=== PATIENT | female | born 1935 | race Caucasian/White ===

== ENCOUNTER 2018-05-06 04:56 | Inpatient (IN) | payer OTHER, MEDICAID ==
[2018-05-01 08:13] LABS: BASOPHILS # (AUTO) 0.1 K/uL (0.0-0.2); BASOPHILS % (AUTO) 0.7 % (0.0-2.0); EOSINOPHILS # (AUTO) 0.3 K/uL (0.0-0.4); EOSINOPHILS % (AUTO) 3.7 % (0.0-4.0); HEMATOCRIT 40.1 % (36-48); HEMOGLOBIN 13.2 g/dL (12.0-16.0); LYMPHOCYTES # (AUTO) 2.6 K/uL (1.0-5.5); LYMPHOCYTES % (AUTO) 33.1 % (20.5-51.5); MEAN CORPUSCULAR HEMOGLOBIN 31 pg (27-31); MEAN CORPUSCULAR HGB CONC 33 % (32-36); MEAN CORPUSCULAR VOLUME 95 fL (79.0-98.0); MONOCYTES # (AUTO) 0.8 K/uL (0.0-1.0); MONOCYTES % (AUTO) 9.5 % (1.7-9.3); NEUTROPHILS # (AUTO) 4.2 K/uL (1.8-7.7); PLATELET COUNT (AUTO) 280 K/uL (130-430); RED BLOOD CELL COUNT(AUTO) 4.22 MIL/uL (4.2-6.2); RED CELL DISTRIBUTION WIDTH 12.8 % (9.0-15.0); WHITE BLOOD COUNT (AUTO) 7.9 K/uL (4.8-10.8)
[2018-05-01 08:19] LABS: ANION GAP 8 (5-15); CALCIUM 8.9 mg/dL (8.4-11.0); CHLORIDE 105 mmol/L (98-107); GLUCOSE 97 mg/dL (70-99); POTASSIUM 4.1 mmol/L (3.5-5.1); SODIUM SERUM 139 mmol/L (136-145); UREA NITROGEN, BLOOD 22 mg/dL (8-21)
[2018-05-01 08:29] LABS: BILIRUBIN,URINE NEGATIVE (NEGATIVE); BLOOD, URINE 1+ (NEGATIVE); CLARITY/URINE SL HAZY (CLEAR); COLOR,URINE YELLOW (YELLOW); GLUCOSE,URINE NEGATIVE (NEGATIVE); KETONES,URINE NEGATIVE (NEGATIVE); LEUKOCYTE ESTERASE ,URINE 2+ (NEGATIVE); NITRITE, URINE POSITIVE (NEGATIVE); PH,URINE 5.5 (5.0-8.0); PROTEIN URINE NEGATIVE (NEGATIVE); UROBILINOGEN,URINE 0.2 (0.2-1.0)
[2018-05-01 08:31] LABS: PROTHROMBIN TIME 10.1 SECS (9.5-12.5)
[2018-05-01 09:34] LABS: BACTERIA,URINE MODERATE /HPF (None Seen); MUCUS,URINE None Seen /LPF (None Seen); WBC,URINE 20-50 /HPF (0-3); YEAST,URINE None Seen /HPF (None Seen)
[~2018-05-06] VITALS: Ht 152.4 cm; Wt 83.0 kg
[~2018-05-06 04:56] MED LIST: BENA20TA2 PO; CLOP300T2 PO; NEU300 PO; ROPI2TAB4 PO; SIMV40TA2 PO; SYN50 PO
[2018-05-06] MEDS ORDERED: CELECOXIB 200 MG CAPSULE ONE (05:40)
[2018-05-06] MEDS ORDERED: ACETAMINOPHEN 500 MG TABLET ONE (05:40)
[2018-05-06] MEDS ORDERED: GABAPENTIN 300 MG CAPSULE ONE (05:41)
[2018-05-06] MEDS ORDERED: TRANEXAMIC ACID 650 MG TABLET ONE (05:41)
[2018-05-06] MEDS ORDERED: oxyCODONE HCL 10 MG TAB.ER.12H PO ONE ×2 (05:41→06:30)
[2018-05-06] MEDS ORDERED: CLINDAMYCIN 600 mg/50mL D5W 50 ML IV ONE (05:42)
[2018-05-06] MEDS ORDERED: ACETAMINOPHEN 500 MG TABLET PO ONE (06:30)
[2018-05-06] MEDS ORDERED: NACL 0.9% 1,000 ML IV ONE (06:30)
[2018-05-06] MEDS ORDERED: GABAPENTIN 300 MG CAPSULE PO ONE (06:30)
[2018-05-06] MEDS ORDERED: CLINDAMYCIN PHOS 600 MG/ D5W 50 ML PREMIX IV ONE (06:30)
[2018-05-06] MEDS ORDERED: CELECOXIB 200 MG CAPSULE PO ONE (06:30)
[2018-05-06] MEDS ORDERED: TRANEXAMIC ACID 650 MG TABLET PO ONE (06:30)
[2018-05-06] MEDS ORDERED: TRAZ-126 PO (06:36)
[2018-05-06] MEDS ORDERED: TOLT4CAP PO (06:36)
[2018-05-06] MEDS ORDERED: CETI1TAB2 PO (06:36)
[2018-05-06] MEDS ORDERED: POLYMYXIN 500,000/BACIT.10,000 UNITS in NS IRR 1 L IR ONE (06:58)
[2018-05-06] MEDS ORDERED: PROPOFOL 200MG/ 20ML VIAL (DIPRIVAN) IV ONE (07:00)
[2018-05-06] MEDS ORDERED: ROCURONIUM BROMIDE 10 MG/ML (ZEMURON) IV ONE (07:00)
[2018-05-06] MEDS ORDERED: ONDANSETRON HCL 4 MG/2 ML VIAL IVP ONE (07:00)
[2018-05-06] MEDS ORDERED: TRANEXAMIC ACID 1,000 MG/10 ML VIAL IV ONE (07:00)
[2018-05-06] MEDS ORDERED: NS 50 ML BAG IV ONE (07:00)
[2018-05-06] MEDS ORDERED: ePHEDrine sulfate 50 MG/ML VIAL IVP ONE (07:00)
[2018-05-06] MEDS ORDERED: NORMAL SALINE 10 ML VIAL IVP ONE (07:00)
[2018-05-06] MEDS ORDERED: MORPHINE SULFATE 10MG/10ML PF AMP EP ONE (07:00)
[2018-05-06] MEDS ORDERED: MIDAZOLAM HCL 5 MG/5 ML VIAL IVP ONE (07:00)
[2018-05-06] MEDS ORDERED: ROPIVACAINE HCL/PF 0.2% (NAROPIN) 200 ML PLAST..BAG EP ONE (07:00)
[2018-05-06] MEDS ORDERED: fentaNYL CITRATE 250 MCG/5 ML AMP IV ONE (07:00)
[2018-05-06] MEDS ORDERED: KETOROLAC TROMETHAMINE 30 MG VIAL IVP ONE (07:00)
[2018-05-06] MEDS ORDERED: ROPIVACAINE HCL/PF 5 MG/ML 0.5% 30 ML VIAL INJ ONE (07:00)
[2018-05-06] MEDS ORDERED: EPINEPHrine 1 MG/ML AMP IV ONE (07:00)
[2018-05-06] MEDS ORDERED: SEVOFLURANE 15 MIN GAS INH ONE (07:00)
[2018-05-06] MEDS ORDERED: LR 1,000 ML IV.SOLN IV ONE (07:00)
[2018-05-06] MEDS ORDERED: VANCOMYCIN HCL 1000 MG/VIAL IV ONE (07:00)
[2018-05-06] MEDS ORDERED: DEXAMETHASONE SOD PHOSPHATE 4 MG/ML VIAL IVP ONE (07:00)
[2018-05-06] MEDS ORDERED: ATROPINE SULFATE 0.4 MG/ML VIAL IVP ONE (07:00)
[2018-05-06] MEDS ORDERED: fentaNYL CITRATE/PF 100 MCG/2 ML AMP IVP ONE (07:00)
[2018-05-06] MEDS ORDERED: LR 1,000 ML IV SCH (08:09)
[2018-05-06] MEDS ORDERED: ROPIVACAINE 0.2% 100 ML INJ SCH (08:09)
[2018-05-06] MEDS ORDERED: HYDROmorphone 2 MG/ML VIAL IVP PRN ×3 (08:15)
[2018-05-06] MEDS ORDERED: MEPERIDINE HCL/PF 25 MG/ML DISP.SYRIN IVP PRN (08:15)
[2018-05-06] MEDS ORDERED: HYDROcodone/ACETAMIN 10-325 MG TAB PO PRN (08:15)
[2018-05-06] MEDS ORDERED: oxyCODONE HCL 5 MG TABLET PO PRN (09:30)
[2018-05-06] MEDS: D5LR 1,000 ML IV SCH ×2 (09:30→17:55)
[2018-05-06] MEDS ORDERED: ONDANSETRON HCL 4 MG/2 ML VIAL IVP PRN (09:30)
[2018-05-06] MEDS ORDERED: SENNOSIDES 8.6 MG TABLET PO PRN (09:30)
[2018-05-06] MEDS ORDERED: DIPHENHYDRAMINE HCL 25 MG CAPSULE PO PRN (09:30)
[2018-05-06] MEDS ORDERED: KETOROLAC TROMETHAMINE 15 MG VIAL IVP PRN ×2 (09:30)
[2018-05-06] MEDS: ROPIVACAINE 0.2% 550 ML INJ SCH (09:30)
[2018-05-06] MEDS ORDERED: PROMETHAZINE HCL 25 MG/ML AMP IVP PRN (09:30)
[2018-05-06] MEDS: HYDROmorphone 1 MG INJ. 1 MG/ML AMPUL ONE ×2 (10:30→11:43)
[2018-05-06] MEDS: ePHEDrine sulfate 50 MG/ML VIAL IVP ONE ×4 (10:40→11:44)
[2018-05-06] MEDS ORDERED: ePHEDrine sulfate 50 MG/ML VIAL ONE (10:45)
[2018-05-06 11:23] LABS: BASOPHILS % (AUTO) 0.3 % (0.0-2.0); EOSINOPHILS % (AUTO) 0.3 % (0.0-4.0); HEMATOCRIT 36.6 % (36-48); HEMOGLOBIN 12.1 g/dL (12.0-16.0); MEAN CORPUSCULAR HEMOGLOBIN 32 pg (27-31); MEAN CORPUSCULAR HGB CONC 33 % (32-36); MEAN CORPUSCULAR VOLUME 96 fL (79.0-98.0); MONOCYTES # (AUTO) 0.1 K/uL (0.0-1.0); MONOCYTES % (AUTO) 1.3 % (1.7-9.3); NEUTROPHILS # (AUTO) 9.3 K/uL (1.8-7.7); NEUTROPHILS % (AUTO) 88.1 % (40.0-70.0); PLATELET COUNT (AUTO) 269 K/uL (130-430); RED BLOOD CELL COUNT(AUTO) 3.82 MIL/uL (4.2-6.2); WHITE BLOOD COUNT (AUTO) 10.4 K/uL (4.8-10.8)
[2018-05-06 11:30] VITALS: BP_SYST 118
[2018-05-06] MEDS: CLINDAMYCIN 600 mg/50mL D5W 50 ML IV SCH ×3 (14:13→23:36)
[2018-05-06 14:42] VITALS: BP_SYST 118
[2018-05-06 15:45] VITALS: BP_SYST 94
[2018-05-06] MEDS: ACETAMINOPHEN 500 MG TABLET PO SCH ×2 (17:20→20:21)
[2018-05-06 20:00] VITALS: BP_SYST 98
[2018-05-06] MEDS: GABAPENTIN 300 MG CAPSULE PO SCH (20:19)
[2018-05-06] MEDS: CELECOXIB 200 MG CAPSULE PO SCH (20:20)
[2018-05-06] MEDS: BENAZEPRIL HCL 20 MG TABLET (LOTENSIN) PO SCH (20:21)
[2018-05-06] MEDS: MORPHINE 4 MG/ML INJ. SYRINGE IVP PRN (21:02)
[2018-05-06] MEDS: HYDROcodone/ACETAMIN 10-325 MG TAB PO PRN (23:34)
[2018-05-06 23:54] VITALS: BP_SYST 102
[2018-05-07] MEDS: CLINDAMYCIN 600 mg/50mL D5W 50 ML IV SCH ×3 (05:38→17:26)
[2018-05-07] MEDS: D5LR 1,000 ML IV SCH ×2 (05:40→14:59)
[2018-05-07] MEDS: LEVOTHYROXINE SODIUM 0.05 MG TABLET PO SCH (06:16)
[2018-05-07 06:49] LABS: ANION GAP 8 (5-15); CALCIUM 8.2 mg/dL (8.4-11.0); CHLORIDE 102 mmol/L (98-107); CREATININE 1.14 mg/dL (0.55-1.30); GLUCOSE 143 mg/dL (70-99); POTASSIUM 5.1 mmol/L (3.5-5.1); SODIUM SERUM 134 mmol/L (136-145); UREA NITROGEN, BLOOD 25 mg/dL (8-21)
[2018-05-07 06:51] LABS: BASOPHILS % (AUTO) 0.1 % (0.0-2.0); EOSINOPHILS # (AUTO) 0.1 K/uL (0.0-0.4); EOSINOPHILS % (AUTO) 0.4 % (0.0-4.0); HEMOGLOBIN 10.8 g/dL (12.0-16.0); LYMPHOCYTES # (AUTO) 1.3 K/uL (1.0-5.5); LYMPHOCYTES % (AUTO) 8.5 % (20.5-51.5); MEAN CORPUSCULAR HEMOGLOBIN 32 pg (27-31); MEAN CORPUSCULAR HGB CONC 33 % (32-36); MEAN CORPUSCULAR VOLUME 97 fL (79.0-98.0); MONOCYTES # (AUTO) 1.2 K/uL (0.0-1.0); MONOCYTES % (AUTO) 7.8 % (1.7-9.3); NEUTROPHILS # (AUTO) 12.9 K/uL (1.8-7.7); NEUTROPHILS % (AUTO) 83.2 % (40.0-70.0); PLATELET COUNT (AUTO) 234 K/uL (130-430); RED BLOOD CELL COUNT(AUTO) 3.41 MIL/uL (4.2-6.2); RED CELL DISTRIBUTION WIDTH 13.4 % (9.0-15.0)
[2018-05-07 07:00] LABS: WHITE BLOOD COUNT (AUTO) 15.5 K/uL (4.8-10.8)
[2018-05-07 07:52] VITALS: BP_SYST 93
[2018-05-07] MEDS: CLOPIDOGREL BISULFATE 75 MG TABLET PO SCH (08:30)
[2018-05-07] MEDS: GABAPENTIN 300 MG CAPSULE PO SCH ×2 (08:30→21:13)
[2018-05-07] MEDS: P-EPHED SUL/LORATADINE 1 TAB.SR TAB.SR.12H PO SCH (08:31)
[2018-05-07] MEDS: CELECOXIB 200 MG CAPSULE PO SCH ×2 (08:31→21:13)
[2018-05-07] MEDS: traZODone HCL 50 MG TABLET (DESYREL) PO SCH (08:31)
[2018-05-07] MEDS: ACETAMINOPHEN 500 MG TABLET PO SCH ×3 (08:31→21:13)
[2018-05-07] MEDS: OXYBUTYNIN CHLORIDE 5 MG TABLET PO SCH ×3 (08:32→21:14)
[2018-05-07] MEDS: BENAZEPRIL HCL 20 MG TABLET (LOTENSIN) PO SCH ×2 (08:33→21:00)
[2018-05-07] MEDS: ROPIVACAINE 0.2% 550 ML INJ SCH (08:33)
[2018-05-07] MEDS: RIVAROXABAN 10 MG TABLET PO SCH (09:39)
[2018-05-07] MEDS: oxyCODONE HCL 5 MG TABLET PO PRN (11:03)
[2018-05-07 11:26] VITALS: BP_SYST 109
[2018-05-07 16:02] VITALS: BP_SYST 92
[2018-05-07 17:25] VITALS: BP_SYST 120
[2018-05-07] MEDS: MORPHINE 4 MG/ML INJ. SYRINGE IVP PRN ×2 (17:26→21:09)
[2018-05-07 20:00] VITALS: BP_SYST 109
[2018-05-07] MEDS ORDERED: SIMVASTATIN 40 MG TABLET PO SCH (21:00)
[2018-05-08] MEDS: CLINDAMYCIN 600 mg/50mL D5W 50 ML IV SCH ×3 (00:11→12:11)
[2018-05-08 00:49] VITALS: BP_SYST 137
[2018-05-08] MEDS: oxyCODONE HCL 5 MG TABLET PO PRN (00:51)
[2018-05-08] MEDS: D5LR 1,000 ML IV SCH (01:30)
[2018-05-08] MEDS: HYDROcodone/ACETAMIN 10-325 MG TAB PO PRN (04:38)
[2018-05-08] MEDS: LEVOTHYROXINE SODIUM 0.05 MG TABLET PO SCH (06:04)
[2018-05-08 06:58] LABS: ANION GAP 6 (5-15); CALCIUM 8.3 mg/dL (8.4-11.0); CHLORIDE 100 mmol/L (98-107); GLUCOSE 102 mg/dL (70-99); POTASSIUM 4.6 mmol/L (3.5-5.1); SODIUM SERUM 132 mmol/L (136-145); UREA NITROGEN, BLOOD 15 mg/dL (8-21)
[2018-05-08 07:18] LABS: HEMATOCRIT 32.5 % (36-48); HEMOGLOBIN 10.8 g/dL (12.0-16.0); MEAN CORPUSCULAR HEMOGLOBIN 32 pg (27-31); MEAN CORPUSCULAR HGB CONC 33 % (32-36); MEAN CORPUSCULAR VOLUME 96 fL (79.0-98.0); PLATELET COUNT (AUTO) 231 K/uL (130-430); RED BLOOD CELL COUNT(AUTO) 3.39 MIL/uL (4.2-6.2); RED CELL DISTRIBUTION WIDTH 13.1 % (9.0-15.0); WHITE BLOOD COUNT (AUTO) 12.6 K/uL (4.8-10.8)
[2018-05-08 08:16] VITALS: BP_SYST 127
[2018-05-08] MEDS: P-EPHED SUL/LORATADINE 1 TAB.SR TAB.SR.12H PO SCH (08:30)
[2018-05-08] MEDS: GABAPENTIN 300 MG CAPSULE PO SCH (08:30)
[2018-05-08] MEDS: CELECOXIB 200 MG CAPSULE PO SCH (08:30)
[2018-05-08] MEDS: traZODone HCL 50 MG TABLET (DESYREL) PO SCH (08:30)
[2018-05-08] MEDS: ACETAMINOPHEN 500 MG TABLET PO SCH ×2 (08:31→14:56)
[2018-05-08] MEDS: CLOPIDOGREL BISULFATE 75 MG TABLET PO SCH (08:31)
[2018-05-08] MEDS: OXYBUTYNIN CHLORIDE 5 MG TABLET PO SCH ×2 (08:31→14:56)
[2018-05-08] MEDS: BENAZEPRIL HCL 20 MG TABLET (LOTENSIN) PO SCH (08:32)
[2018-05-08 08:56] LABS: BAND % (MANUAL) 1 % (0-6); BASOPHILS % (MANUAL) 0 % (0-2); EOSINOPHILS % (MANUAL) 6 % (0-7); LYMPHOCYTES % (MANUAL) 15 % (20-46); MONOCYTES % (MANUAL) 10 % (0-11)
[2018-05-08] MEDS: RIVAROXABAN 10 MG TABLET PO SCH (10:17)
[2018-05-08 11:01] VITALS: BP_SYST 112
[2018-05-08 11:30] VITALS: BP_SYST 112
[2018-05-08 15:45] VITALS: BP_SYST 118
== END 2018-05-08 16:50 | DRG 470 ==
LOC: SMU 04:56 → STU 11:20 → SMU 05-08 12:08
PROVIDERS: ADMIT Orthopaedic Surgery; ATTEND Orthopaedic Surgery
PROC: 0SRD0J9 Replacement of Left Knee Joint with Synthetic Substitute, Cemented, Open Approach (ICD-10-PCS; principal; 2018-05-06 07:30)
DX: M17.0 Bilateral primary osteoarthritis of knee (principal); I10 Essential (primary) hypertension; E78.5 Hyperlipidemia, unspecified; E66.9 Obesity, unspecified; E03.9 Hypothyroidism, unspecified; F32.9 Major depressive disorder, single episode, unspecified; Z88.0 Allergy status to penicillin; Z86.73 Personal history of transient ischemic attack (TIA), and cerebral infarction without residual deficits; Z68.35 Body mass index [BMI] 35.0-35.9, adult
CPT/HCPCS: 36415; 71046-TC; 80048; 81000-TC; 84484; 85007; 85025; 85027; 85610-TC; 85730-TC; 87081; 88305; 88311; 93005; 97039; 97110-GP; 97116-GP; 97530-GP; C1713; C1776; G0378; J0171; J0461; J1100; J1170; J1885; J2250; J2270; J2274; J2405; J2704; J2795; J3010; J3370; J3490; J7120

== ENCOUNTER 2018-05-29 17:34 | Emergency (ER) | payer OTHER, MEDICAID ==
[~2018-05-29] VITALS: Ht 165.1 cm; Wt 77.1 kg
[~2018-05-29 17:34] MED LIST changes: -BENA20TA2 PO; +BENA20TA9 PO; +CETI1TAB2 PO; +TOLT4CAP PO; +TRAZ-219 PO
[2018-05-29 17:35] VITALS: BP_SYST 138
[2018-05-29] MEDS ORDERED: LORazepam 1 MG TABLET PO ONE (18:30)
[2018-05-29] MEDS ORDERED: cefTRIAXone 1 GM in LIDOCAINE 1%, 20 ML MDV 2.1 ML IM ONE (19:15)
[2018-05-29 20:20] VITALS: BP_SYST 138
== END 2018-05-29 20:40 | disposition home or self-care (01) ==
LOC: SED 17:34
DX: F41.9 Anxiety disorder, unspecified (principal); N39.0 Urinary tract infection, site not specified; I10 Essential (primary) hypertension; E07.9 Disorder of thyroid, unspecified; F32.9 Major depressive disorder, single episode, unspecified; Z88.0 Allergy status to penicillin; Z79.01 Long term (current) use of anticoagulants; Z79.899 Other long term (current) drug therapy
CPT/HCPCS: 71045; 93005; 96372; 99283; J0696; J2001

== ENCOUNTER 2021-09-17 21:08 | Inpatient (IN) | payer OTHER, MEDICAID ==
[~2021-09-17] VITALS: Ht 149.9 cm; Wt 79.6 kg
[~2021-09-17 21:08] MED LIST changes: +BENA-6 PO; -BENA20TA9 PO; -TRAZ-219 PO; +TRAZ-251 PO
[2021-09-17 21:18] VITALS: BP_SYST 116
--- NOTE | 2021-09-17 21:22 | NUR ---
PATIENT PLACED IN ROOM 3, REPORT GIVEN TO JAYSHREE LAL. PATIENT FROM [facility]. PER BLS CREW, PATIENT HAD A MECHANICAL SLIP/FALL THIS AM BUT REFUSED TO BE SEEN INITIALLY. NO LOC. ONLY COMPLAINT OF LEFT SHOULDER PAIN. NO DEFORMITY, TRAUMA NOTED, JUST INCREASE IN PAIN THROUGHOUT THE DAY. A/O X 4.
--- NOTE | 2021-09-17 21:26 | NUR ---
PATIENT IS ON ELOQUIS, BLOOD THINNER
--- NOTE | 2021-09-17 21:30 | NUR ---
BRANDON NULL AT BEDSIDE EXAMINING PATIENT.
--- NOTE | 2021-09-17 21:45 | NUR ---
First contact. Pt placed on monitor. Pain noted to left shoulder when palpated. Pt limits movement to extremity as well. +2 pulse noted.
--- NOTE | 2021-09-17 22:40 | NUR ---
Notified Dr. Nichols of patient's concern regarding pain and desires to have pain medication. Awaiting new orders.
--- NOTE | 2021-09-17 22:45 | NUR ---
Notified Dr. Nichols that patient is now concerned about left knee pain as well that has gotten worse since the fall this morning.
[2021-09-17] MEDS ORDERED: MORPHINE 4 MG INJ. 4 MG/ML VIAL IM ONE (23:00)
[2021-09-17] MEDS ORDERED: MORPHINE 4 MG INJ. 4 MG/ML VIAL ONE (23:04)
[2021-09-17 23:42] LABS: BASOPHILS # (AUTO) 0.1 K/uL (0.0-0.2); EOSINOPHILS # (AUTO) 0.2 K/uL (0.0-0.4)
[2021-09-17 23:47] LABS: BASOPHILS % (AUTO) 0.8 % (0.0-2.0); EOSINOPHILS % (AUTO) 1.8 % (0.0-4.0); LYMPHOCYTES # (AUTO) 1.8 K/uL (1.0-5.5); LYMPHOCYTES % (AUTO) 19.9 % (20.5-51.5); MEAN CORPUSCULAR HEMOGLOBIN 33 pg (27-31); MEAN CORPUSCULAR HGB CONC 35 % (32-36); MEAN CORPUSCULAR VOLUME 93 fL (79.0-98.0); MONOCYTES % (AUTO) 11.5 % (1.7-9.3); PLATELET COUNT (AUTO) 341 K/uL (130-430); RED BLOOD CELL COUNT(AUTO) 3.65 MIL/uL (4.2-6.2); RED CELL DISTRIBUTION WIDTH 12.9 % (9.0-15.0); WHITE BLOOD COUNT (AUTO) 9.1 K/uL (4.8-10.8)
[2021-09-17 23:50] LABS: ANION GAP 8 (5-15); CALCIUM 8.3 mg/dL (8.4-11.0); CHLORIDE 99 mmol/L (98-107); CREATININE 1.09 mg/dL (0.55-1.30); GLUCOSE 105 mg/dL (70-99); POTASSIUM 4.2 mmol/L (3.5-5.1); SODIUM SERUM 129 mmol/L (136-145); UREA NITROGEN, BLOOD 18 mg/dL (8-21)
[2021-09-18 00:09] LABS: ALANINE AMINOTRANSFERASE 16 U/L (12-78); ALBUMIN 3.2 g/dL (3.4-4.8); ASPARTATE AMINOTRANSFERASE 25 U/L (10-37); TOTAL BILIRUBIN 0.3 mg/dL (0.0-1.0)
[2021-09-18 00:10] LABS: ACETAMINOPHEN < 1 ug/mL (1-30); ALCOHOL, BLOOD 0 mg/dL (<10)
[2021-09-18 00:18] LABS: BARBITURATE, URINE NEGATIVE (NEG <=200); BENZODIAZEPINE, URINE NEGATIVE (NEG <=150); CANNABINOID, URINE NEGATIVE (NEG <=50); COCAINE, URINE NEGATIVE (NEG <=150); METHAMPHETAMINES SCREEN,URINE NEGATIVE (NEG <=500); OPIATE, URINE NEGATIVE (NEG <=100); PHENCYCLIDINE SCREEN,URINE NEGATIVE (NEG <=25); UR TRICYCLIC ANTIDEPRESSANTS POSITIVE (NEG <=300); URINE AMPHETAMINE NEGATIVE (NEG <=500); URINE METHADONE NEGATIVE (NEG <=200)
[2021-09-18 00:19] LABS: URINE OXYCODONE SCREEN NEGATIVE (NEG <=100); URINE PROPOXYPHENE SCREEN NEGATIVE (NEG <=300)
[2021-09-18 01:22] LABS: PROTHROMBIN TIME 10.3 SECS (9.5-12.5)
--- NOTE | 2021-09-18 05:00 | NUR ---
admit call Paged Dr. Cloud (PCP) for admission, pager [phone]
--- NOTE | 2021-09-18 07:00 | NUR ---
Admit bed requested Patient will be admitted to care of . Admitted to MEDSURGE unit. Diagnosis MULTIPLE FALLS Inpatient (Yes or No) YES Observation (Yes or No) NO Orientation concerns or request close to nursing station (Yes or No) YES Covid Status NEG On vent or bipap NO Isolation requirements NO Needs a sitter NO From Home (Yes or if No enter name of facility) [facility] Requires Dialysis (Yes or No) NO Med Rec Completed (Yes of No)
--- NOTE | 2021-09-18 07:41 | NUR ---
a/ox4 vss respirations even non labored, at bedside, awaiting for room admission
--- NOTE | 2021-09-18 09:13 | NUR ---
Admission Note Received patient from ER with diagnosis of Multiple Falls. Initial Plan of Care discussed-patient and patient'sdaughter verbalized their understanding. Family at bedside. Oriented to room, call light, pain management and safety. Siderails up x3, bed alarm on, room across from nursing stattion for safety. Call light within reach.
[2021-09-18] MEDS ORDERED: traZODone HCL 50 MG TABLET (DESYREL) PO ONE (09:45)
[2021-09-18] MEDS ORDERED: NON-FORMULARY MEDICATION (Cetirizine Hcl/Pseudoephedrine (Zyrtec-D Tablet) 1 TAB) PO SCH (09:45)
[2021-09-18] MEDS ORDERED: SIMVASTATIN 40 MG TABLET PO ONE (09:45)
[2021-09-18] MEDS ORDERED: BENAZEPRIL HCL 20 MG TABLET (LOTENSIN) PO SCH (09:45)
[2021-09-18] MEDS ORDERED: traMADol HCL HCL 50 MG TABLET (ULTRAM) PO PRN (09:45)
[2021-09-18] MEDS ORDERED: TOLTERODINE TARTRATE ER 2 MG CAP.ER.24H PO SCH (09:45)
[2021-09-18] MEDS ORDERED: CLOPIDOGREL BISULFATE 75 MG TABLET PO ONE (10:00)
[2021-09-18] MEDS ORDERED: lisinopriL 20 MG TABLET PO ONE (10:00)
[2021-09-18] MEDS ORDERED: GABAPENTIN 300 MG CAPSULE PO ONE (10:00)
[2021-09-18] MEDS ORDERED: OXYBUTYNIN CHLORIDE 5 MG TABLET PO ONE (10:30)
[2021-09-18 11:05] VITALS: BP_SYST 125
[2021-09-18 16:05] VITALS: BP_SYST 99
[2021-09-18] MEDS: OXYBUTYNIN CHLORIDE 5 MG TABLET PO SCH ×2 (16:45→22:18)
--- NOTE | 2021-09-18 19:15 | NUR ---
CLOSING NOTE Pt sitting up eating dinner and visiting with her daughter. No s/s resp distress, no c/o pain or discomfort. Aspiration, skin and safety precautions remain in place. Call light within reach.
[2021-09-18] MEDS: lisinopriL 20 MG TABLET PO SCH (21:00)
[2021-09-18] MEDS: ENOXAPARIN SODIUM 40 MG/0.4 ML SYRINGE SUBCUT SCH (22:19)
[2021-09-18 22:20] VITALS: BP_SYST 99
[2021-09-19 00:05] VITALS: BP_SYST 113
[2021-09-19] MEDS: LEVOTHYROXINE SODIUM 0.05 MG TABLET PO SCH (06:47)
--- NOTE | 2021-09-19 07:38 | NUR ---
pt on bedpan during report. endorse to day nurse. pt did not want to be taken off of bedpan yet.
[2021-09-19 08:00] VITALS: BP_SYST 125
--- NOTE | 2021-09-19 08:00 | NUR ---
Initial Notes Patient is AOx4. Patient is in no distress, no pain noted. Patient has been cleaned and repositioned. Patient is eating breakfast. Vital signs obtained, as documented. Safety precautions in place and call light within reach.
[2021-09-19] MEDS: P-EPHED SUL/LORATADINE TAB.SR.12H PO SCH (10:33)
[2021-09-19] MEDS: traZODone HCL 50 MG TABLET (DESYREL) PO SCH (10:33)
[2021-09-19] MEDS: GABAPENTIN 300 MG CAPSULE PO SCH (10:34)
[2021-09-19] MEDS: SIMVASTATIN 40 MG TABLET PO SCH (10:34)
[2021-09-19] MEDS: OXYBUTYNIN CHLORIDE 5 MG TABLET PO SCH ×3 (10:34→22:56)
[2021-09-19] MEDS: CLOPIDOGREL BISULFATE 75 MG TABLET PO SCH (10:34)
[2021-09-19] MEDS: lisinopriL 20 MG TABLET PO SCH ×2 (10:35→22:59)
[2021-09-19 12:00] VITALS: BP_SYST 95
--- NOTE | 2021-09-19 12:00 | NUR ---
Notes Patient in bed, eating lunch. Denies any pain. Patient is stable. Safety precautions in place and call light within reach.
--- NOTE | 2021-09-19 15:37 | NUR ---
CONSULTATION PAGED REASON FOR CONSULTATION:LEFT SHOULDER PAIN WAS CONSULT CALLED?Y -PERSON WHO WAS NOTIFIED:BERKLEY HOLMAN CONSULTING PHYSICIAN:BERKLEY HOLMAN YEAST MAKER SPECIALTY:ORTHO YEAST MAKER PHONE NUMBER:[phone] REQUESTING PHYSICIAN:MICA ALDANA
[2021-09-19 16:00] VITALS: BP_SYST 112
--- NOTE | 2021-09-19 18:25 | NUR ---
Closing note Assisted patient to restroom. Tolerated ambulation well. Ambulated with walker. Patient is in no distress. denies any pain. Patient eating dinner, in chair by bed. Safety precautions in place and call light within reach.
[2021-09-19 20:37] VITALS: BP_SYST 110
--- NOTE | 2021-09-19 20:39 | NUR ---
RECEIVED PT LYING IN BED, NO DISTRESS NOTED, C/O LT ARM DISCOMFORT WHEN MOVING IT. DOES NOT WANT PAIN MEDICATION AT THIS TIME. ASSISTED PT TO BATHROOM WITH MODERATE ASSISTED. BRUISED NOTED TO LUE. CALL LIGHT WITHIN REACH, BED ALARM ON.
[2021-09-19] MEDS: ENOXAPARIN SODIUM 40 MG/0.4 ML SYRINGE SUBCUT SCH (22:59)
[2021-09-20 00:28] VITALS: BP_SYST 101
[2021-09-20] MEDS: LEVOTHYROXINE SODIUM 0.05 MG TABLET PO SCH (06:26)
[2021-09-20 08:00] VITALS: BP_SYST 104
--- NOTE | 2021-09-20 08:00 | NUR ---
Initial Notes Patient is sitting in chair, beside bed eating breakfast. No s/s of distress. no SOB. patient is stable. Vital signs obtained,as documented. AOx3. Denies pain. Safety precautions in place and call light within reach.
[2021-09-20] MEDS: lisinopriL 20 MG TABLET PO SCH (09:00)
[2021-09-20] MEDS: P-EPHED SUL/LORATADINE TAB.SR.12H PO SCH (09:07)
[2021-09-20] MEDS: CLOPIDOGREL BISULFATE 75 MG TABLET PO SCH (09:07)
[2021-09-20] MEDS: traZODone HCL 50 MG TABLET (DESYREL) PO SCH (09:07)
[2021-09-20] MEDS: SIMVASTATIN 40 MG TABLET PO SCH (09:08)
[2021-09-20] MEDS: GABAPENTIN 300 MG CAPSULE PO SCH (09:08)
[2021-09-20] MEDS: OXYBUTYNIN CHLORIDE 5 MG TABLET PO SCH ×2 (09:08→15:50)
--- NOTE | 2021-09-20 11:00 | NUR ---
Notes Called Dr. Russell, about MRI. MRI machine down. Per MD, MRI can be done outpatient.
--- NOTE | 2021-09-20 12:00 | NUR ---
Notes Patient is eating Lunch. No distress noted. Denies pain. Safety precautions in place and call light within reach.
--- NOTE | 2021-09-20 12:06 | NUR ---
Discharge Planning: DCP faxed pt referral to [facility] P#[phone] DCP to follow up Addendum: 09/20/21 at 1420 by Angeles Russo DP Per at [facility] P#[phone] pt accepted
[2021-09-20 12:47] VITALS: BP_SYST 112
[2021-09-20 16:49] VITALS: BP_SYST 119
[2021-09-20 18:09] VITALS: BP_SYST 119
--- NOTE | 2021-09-20 18:54 | NUR ---
DISCHARGE PATIENT HAS BEEN DISCHARGED. VITAL SIGNS WITHIN RANGE. NO S/S OF DISTRESS, DENIES ANY PAIN. PATIENT AMBULATORY WITH ASSIST. DAUGHTER AWARE AND CAME TO PICK HER UP. PATIENT HAS BEEN CHANGED. PATIENT GIVEN MEDICATION RECONCILIATION FORMA ND D/C INSTRUCTIONS. PATIENT VERBALIZED UNDERSTANDING. IV REMOVED, NO ACTIVE BLEEDING. DRESSING CLEAN AND INTACT.RX GIVEN. PATIENT EDUCATED ON PAIN MANAGEMENT. ALL BELONGINGS SENT WITH PATIENT.
--- NOTE | 2021-09-21 08:10 | NUR ---
PHYSICAL THERAPY CO-SIGN The Physical Therapy Progress Notes documented by Talent Sourcing Specialist have been reviewed. Reviewed/Co-Signed by: Austin Hammond Documentation Done by: KASHMIR JONAS PTA Addendum: 09/21/21 at 0811 by Austin Hammond PT Amended: Links added.
--- NOTE | 2021-10-05 14:30 | NUR ---
Insulation Packer ALARM INVESTIGATOR made a Post Discharge Follow-Up Phone Call to former pt. Ling Gresham. ALARM INVESTIGATOR spoke to Any, who stated Ling is high functioning there at the assisted living and is able to walk around, dress herself. The only thing they assist with is bathing her. According to Ling doing well, but has not had HH come out. Larissa will call the HH to follow up for the safety, pt and ot eval.
== END 2021-09-20 18:46 | disposition home health service (06) | DRG 558 ==
LOC: SED 21:08 → SMU 09-18 07:11
PROVIDERS: ADMIT Family Medicine; ATTEND Family Medicine
DX: M75.102 Unspecified rotator cuff tear or rupture of left shoulder, not specified as traumatic (principal); M19.012 Primary osteoarthritis, left shoulder; R42 Dizziness and giddiness; M19.011 Primary osteoarthritis, right shoulder; I10 Essential (primary) hypertension; E03.9 Hypothyroidism, unspecified; Z20.822 Contact with and (suspected) exposure to COVID-19; G47.00 Insomnia, unspecified; R29.6 Repeated falls; M17.0 Bilateral primary osteoarthritis of knee; Z88.0 Allergy status to penicillin
CPT/HCPCS: 36415; 70450-TC; 71045; 71275; 72192-TC; 73030; 73200-TC; 73564; 76376; 80053; 80307; 83605; 84484; 85025; 85610-TC; 85730-TC; 87040; 93005; 96372; 97110-GP; 97116-GP; 99285; G0480; G0481; G0482; J1650; J2270; Q9967

== ENCOUNTER 2022-04-19 15:07 | Inpatient (IN) | payer OTHER, MEDICAID ==
[~2022-04-19] VITALS: Ht 152.4 cm; Wt 81.6 kg
[2022-04-19 15:25] VITALS: BP_SYST 193
--- NOTE | 2022-04-19 15:32 | NUR ---
Patient to ER bed 08 to gown for evaluation. Side rails up. Report given to Beatriz MARTELL
--- NOTE | 2022-04-19 16:09 | NUR ---
PT COMES IN VIA W/C FROM [facility] WITH DTR FOR C/O GRADUAL ONSET LOWER BACK PAIN X 1 MONTH. PAIN RADIATES TO BILATERAL LOWER EXTREMITIES. USES WALKER, BUT MORE DIFFICULT TO USE IN THE LAST COUPLE OF DAYS. PT AND FAMILY DENIES ANY RECENT TRAUMA/FALL. DENIES ACUTE INCONTINENCE.
[2022-04-19 17:03] LABS: BASOPHILS # (AUTO) 0.1 K/uL (0.0-0.2); BASOPHILS % (AUTO) 0.7 % (0.0-2.0); EOSINOPHILS # (AUTO) 0.2 K/uL (0.0-0.4); EOSINOPHILS % (AUTO) 1.9 % (0.0-4.0); HEMATOCRIT 35.8 % (36-48); HEMOGLOBIN 12.2 g/dL (12.0-16.0); LYMPHOCYTES # (AUTO) 1.9 K/uL (1.0-5.5); LYMPHOCYTES % (AUTO) 21.7 % (20.5-51.5); MEAN CORPUSCULAR HEMOGLOBIN 32 pg (27-31); MEAN CORPUSCULAR HGB CONC 34 % (32-36); MEAN CORPUSCULAR VOLUME 95 fL (79.0-98.0); MONOCYTES % (AUTO) 11.4 % (1.7-9.3); NEUTROPHILS # (AUTO) 5.5 K/uL (1.8-7.7); NEUTROPHILS % (AUTO) 64.3 % (40.0-70.0); PLATELET COUNT (AUTO) 332 K/uL (130-430); RED BLOOD CELL COUNT(AUTO) 3.79 MIL/uL (4.2-6.2); RED CELL DISTRIBUTION WIDTH 13.1 % (9.0-15.0); WHITE BLOOD COUNT (AUTO) 8.6 K/uL (4.8-10.8)
[2022-04-19 17:49] LABS: ANION GAP 11 (5-15); CALCIUM 9.3 mg/dL (8.4-11.0); CHLORIDE 96 mmol/L (98-107); CREATININE 0.82 mg/dL (0.55-1.30); GLUCOSE 103 mg/dL (70-99); UREA NITROGEN, BLOOD 19 mg/dL (8-21)
[2022-04-19 17:55] LABS: ALANINE AMINOTRANSFERASE 26 U/L (12-78); ALBUMIN 3.5 g/dL (3.4-4.8); ASPARTATE AMINOTRANSFERASE 24 U/L (10-37); TOTAL BILIRUBIN 0.4 mg/dL (0.0-1.0)
[2022-04-19] MEDS ORDERED: cefTRIAXone 1 GM IVPB PREMIX 50 ML IV ONE (18:45)
[2022-04-19 20:05] LABS: BILIRUBIN,URINE NEGATIVE (NEGATIVE); BLOOD, URINE 1+ (NEGATIVE); CLARITY/URINE SL CLOUDY (CLEAR); COLOR,URINE YELLOW (YELLOW); GLUCOSE,URINE NEGATIVE (NEGATIVE); KETONES,URINE NEGATIVE (NEGATIVE); LEUKOCYTE ESTERASE ,URINE 3+ (NEGATIVE); NITRITE, URINE POSITIVE (NEGATIVE); PH,URINE 6.5 (5.0-8.0); PROTEIN URINE NEGATIVE (NEGATIVE); UROBILINOGEN,URINE 0.2 (0.2-1.0)
[2022-04-19 20:17] LABS: BACTERIA,URINE MODERATE /HPF (None Seen); RBC,URINE 0-3 /HPF (0-3); WBC,URINE 50-80 /HPF (0-3)
[2022-04-19 20:18] LABS: MUCUS,URINE 1+ /LPF (None Seen)
--- NOTE | 2022-04-19 20:56 | NUR ---
# 22 gauge angiocath placed to RFA. Use of asceptic technique. Opsite placed over site. Blood return noted. Flushed with 10 cc of normal saline. No evidence of infiltration noted. Patient tolerated well.
--- NOTE | 2022-04-19 20:56 | NUR ---
MRSA SWAB COLLECTED AND SENT TO LAB.
[2022-04-19] MEDS ORDERED: MORPHINE 4 MG INJ. 4 MG/ML VIAL IVP ONE (21:00)
--- NOTE | 2022-04-19 21:17 | NUR ---
Admit bed requested Patient will be admitted to care of . Admitted to MED SURG unit. Diagnosis UTI AND INTRACTABLE BACK PAIN Inpatient (Yes or No) Y Observation (Yes or No) N Orientation concerns or request close to nursing station (Yes or No) N Covid Status NEG On vent or bipap N Isolation requirements N Needs a sitter N From Home (Yes or if No enter name of facility) Y Requires Dialysis (Yes or No) N Med Rec Completed (Yes of No) PENDING
--- NOTE | 2022-04-19 21:35 | NUR ---
Patient will be admitted to care of DR. SOUTH. Admitted to MED SURG unit. Will go to room 122A. Belongings list completed. Complete and up to date summary report printed. SBAR report to be given VIA PHONE TO JAYSHREE BEDOYA with opportunity for questions.
--- NOTE | 2022-04-19 21:36 | NUR ---
ADMISSION NOTE Received patient from ER via liliya, received report from Meng MARTELL. Patient admitted with diagnosis of uti , intractable back pain. Patient oriented to hospital routine, call light, toileting and safety-patient verbalized understanding.
[2022-04-19 21:48] VITALS: BP_SYST 151
--- NOTE | 2022-04-19 22:02 | NUR ---
Pageshamir Cloud for pain meds.
[2022-04-19] MEDS ORDERED: HYDROmorphone 1 MG/ML INJ. CARTRIDGE IVP PRN (22:15)
[2022-04-19] MEDS ORDERED: NALOXONE HCL 0.4 MG/ML AMP (NARCAN) IVP PRN (22:15)
--- NOTE | 2022-04-19 23:00 | NUR ---
New admit from ER, aox4, v/s stated she's in a lot of pain, complete skin check done, skin intact except for redness on buttocks, iv access to RFA, patent, daughter by bedside, paged for pain med, oriented to room, low bed, call light, will conitnue with care plan
[2022-04-19] MEDS ORDERED: GABAPENTIN 300 MG CAPSULE PO ONE (23:24)
[2022-04-20] MEDS: LEVOTHYROXINE SODIUM 0.05 MG TABLET PO SCH (06:12)
--- NOTE | 2022-04-20 06:40 | NUR ---
Pt aox4, denied sob, n/v, cp or an pain at this time, vss, iv access to RFA and patent w/o infiltration, received due meds w/o complain, voiding via bedpan, MRSA collected sent this morning, low bed, call light, will endorse to AM RN
[2022-04-20 08:00] VITALS: BP_SYST 139
--- NOTE | 2022-04-20 08:00 | NUR ---
OPENING NOTES ASLEEP. EASILY AROUSES. ORIENTED. NO SHORTNESS OF BREATH ON ROOM AIR. REPORTED PAIN ON THE RIGHT UPPER LEG THAT RADIATES TO THE FOOT AFTER USING THE BEDPAN. REPOSITIONED, MASSAGED AREA AND HOT PACKS APPLIED. PATIENT SAID IT HELPED. SAFETY CHECKS DONE. CALL LIGHT WITHIN REACH.
[2022-04-20] MEDS: MORPHINE SULFATE 15 MG TABLET.ER PO SCH ×2 (08:52→21:19)
[2022-04-20] MEDS: CLOPIDOGREL BISULFATE 75 MG TABLET PO SCH (08:52)
[2022-04-20] MEDS: OXYBUTYNIN CHLORIDE 5 MG TABLET PO SCH ×3 (08:52→21:18)
[2022-04-20] MEDS: GABAPENTIN 300 MG CAPSULE PO SCH ×4 (08:53→21:17)
[2022-04-20] MEDS: SIMVASTATIN 40 MG TABLET PO SCH (08:53)
[2022-04-20] MEDS: lisinopriL 20 MG TABLET PO SCH ×2 (08:55→21:18)
[2022-04-20] MEDS ORDERED: BENAZEPRIL HCL 20 MG TABLET (LOTENSIN) PO SCH (09:00)
[2022-04-20] MEDS ORDERED: traZODone HCL 50 MG TABLET (DESYREL) PO SCH (09:00)
[2022-04-20] MEDS ORDERED: P-EPHED SUL/LORATADINE TAB.SR.12H PO PRN (09:00)
[2022-04-20] MEDS ORDERED: TOLTERODINE TARTRATE ER 2 MG CAP.ER.24H PO SCH (09:00)
--- NOTE | 2022-04-20 09:10 | NUR ---
MED PASS PAIN IN THE RIGHT LEG IS CONTROLLED. TOLERATED ORAL MEDICATIONS. VERBALIZED UNDERSTANDING OF PURPOSE OF EACH MED.
--- NOTE | 2022-04-20 12:20 | NUR ---
ROUNDS; MRI SCREENING FORM PATIENT COULD NOT UNDERSTAND CHECKLIST; CALLED HER DAUGHTER EDWINA AND WENT THROUGH THE CHECKLIST WITH HER. PATIENT IS RESTING. NO SHORTNESS OF BREATH ON ROOM AIR. DENIES ANY PAIN. REPORTS DRIBBLING. EXPLAINED THAT THIS IS A COMMON SYMPTOM OF UTI. NEEDS ATTENDED. SAFETY CHECKS DONE. CALL LIGHT WITHIN REACH.
--- NOTE | 2022-04-20 13:15 | NUR ---
ROUNDS SEEN AND EXAMINED BY DR. ARCHULETA. INFORMED THAT PATIENT REPORTED DIFFICULTY EMPTYING THE BLADDER. ORDERS RECEIVED FOR FLOMAX 0.4MG DAILY.
[2022-04-20] MEDS ORDERED: TAMSULOSIN HCL 0.4 MG CAP PO ONE (13:30)
[2022-04-20 13:58] VITALS: BP_SYST 113
--- NOTE | 2022-04-20 16:00 | NUR ---
ROUNDS ASSISTED TO THE RESTROOM AND BACK TO BED SAFELY. NO SHORTNESS OF BREATH. FOLLOWED UP ON MRI BUT BINH SAID THE DEPUTY DIRECTOR OF NURSING NEEDED TO GO HOME EARLY AND THAT THEY WILL DO THE MRI FIRST THING TOMORROW MORNING. SAFETY CHECKS DONE. CALL LIGHT WITHIN REACH.
[2022-04-20 17:50] VITALS: BP_SYST 100
[2022-04-20] MEDS: cefTRIAXone 1 GM in D5W 50 ML IV SCH (18:23)
--- NOTE | 2022-04-20 18:35 | NUR ---
CLOSING NOTES EATING DINNER. FAMILY AT BEDSIDE. NO SHORTNESS OF BREATH. HIP PAIN IS CONTROLLED. ALL NEEDS MET. SAFETY CHECKS DONE. CALL LIGHT WITHIN REACH.
--- NOTE | 2022-04-20 20:11 | NUR ---
Restroom patient assisted to restroom with FWW. She voided and returned to bed. Safety precautions in place and call light w/in reach.
[2022-04-20 20:56] VITALS: BP_SYST 107
--- NOTE | 2022-04-20 21:02 | NUR ---
RECEIVED REPORT AT THIS TIME, PT RESTING IN BED. RECEIVED INFO FROM [facility] THAT A TECH CALLED OUT And there may be a possibility of MRI LUMBAR NOT TO BE DONE TOMORROW
[2022-04-20] MEDS: CYCLOBENZAPRINE HCL 10 MG TABLET (FLEXERIL) PO SCH (21:19)
[2022-04-20] MEDS: ENOXAPARIN SODIUM 30 MG/0.3 ML SYRINGE SUBCUT SCH (21:19)
[2022-04-21] MEDS: LEVOTHYROXINE SODIUM 0.05 MG TABLET PO SCH (06:21)
--- NOTE | 2022-04-21 07:15 | NUR ---
NO DISTRESS OVERNIGHT, PT RESTING IN BED. NO COMPLAINTS AT THIS TIME
[2022-04-21] MEDS: SIMVASTATIN 40 MG TABLET PO SCH (08:53)
[2022-04-21] MEDS: OXYBUTYNIN CHLORIDE 5 MG TABLET PO SCH ×3 (08:53→21:34)
[2022-04-21] MEDS: TAMSULOSIN HCL 0.4 MG CAP PO SCH (08:54)
[2022-04-21] MEDS: lisinopriL 20 MG TABLET PO SCH ×2 (08:54→21:35)
[2022-04-21] MEDS: MORPHINE SULFATE 15 MG TABLET.ER PO SCH ×2 (08:54→21:34)
[2022-04-21] MEDS: GABAPENTIN 300 MG CAPSULE PO SCH ×3 (08:54→21:34)
[2022-04-21] MEDS: CLOPIDOGREL BISULFATE 75 MG TABLET PO SCH (08:55)
[2022-04-21 12:26] VITALS: BP_SYST 105
--- NOTE | 2022-04-21 16:40 | NUR ---
ASSUME CARE FROM NURSE ZINA.
[2022-04-21 16:48] VITALS: BP_SYST 115
[2022-04-21] MEDS: cefTRIAXone 1 GM in D5W 50 ML IV SCH (18:49)
[2022-04-21 20:05] VITALS: BP_SYST 89
[2022-04-21 20:09] VITALS: BP_SYST 89
[2022-04-21] MEDS ORDERED: traZODone HCL 50 MG TABLET (DESYREL) PO SCH (21:00)
[2022-04-21] MEDS: ENOXAPARIN SODIUM 30 MG/0.3 ML SYRINGE SUBCUT SCH (21:33)
[2022-04-21] MEDS: CYCLOBENZAPRINE HCL 10 MG TABLET (FLEXERIL) PO SCH (21:34)
[2022-04-22] VITALS (7 sets, daily range): BP systolic 94–127
[2022-04-22] MEDS: LEVOTHYROXINE SODIUM 0.05 MG TABLET PO SCH (06:19)
--- NOTE | 2022-04-22 08:00 | NUR ---
Initial notes Alert, peak azeri but understand Nauruan. Pain is control at this time. No distress. Family at bedside. Bed alarm on. Call light within reach.
--- NOTE | 2022-04-22 08:31 | NUR ---
INSTRUCTED BY JAYSHREE ZAPATA, FAXED DR ARCHULETA'S ORDER TO [facility] FOR [facility]ACEMENT.
[2022-04-22] MEDS: GABAPENTIN 300 MG CAPSULE PO SCH ×2 (08:55→14:55)
[2022-04-22] MEDS: MORPHINE SULFATE 15 MG TABLET.ER PO SCH (08:56)
[2022-04-22] MEDS: CLOPIDOGREL BISULFATE 75 MG TABLET PO SCH (08:56)
[2022-04-22] MEDS: OXYBUTYNIN CHLORIDE 5 MG TABLET PO SCH ×2 (08:57→14:55)
[2022-04-22] MEDS: TAMSULOSIN HCL 0.4 MG CAP PO SCH (08:57)
[2022-04-22] MEDS: lisinopriL 20 MG TABLET PO SCH (08:57)
--- NOTE | 2022-04-22 10:07 | NUR ---
INSTRUCTED BY [facility] GRAINING OPERATOR, MS JOSEPH, CALLED EZRA, DIRECTOR OF CASE MGMT TO CHECK IF ANYONE IS ON DUTY TODAY. NO ONE IS ON TODAY. EZRA GAVE ME THE GO SIGNAL TO FAX THE CLINICALS AND PAPERWORKS TO [facility].
--- NOTE | 2022-04-22 13:00 | NUR ---
Notes- Asissted to the bathroom with FWW. tolerated so far.
[2022-04-22] MEDS ORDERED: FUROSEMIDE 20 MG/2 ML VIAL IVP ONE (14:00)
[2022-04-22] MEDS ORDERED: LIDOCAINE VISCOUS 2%, 15 ML UDC MM PRN (14:00)
[2022-04-22] MEDS ORDERED: levalbuterol HCL 0.63 MG/3 ML VIAL.NEB INH PRN (14:00)
--- NOTE | 2022-04-22 14:00 | NUR ---
Md rounds Seen by Dr. Wheatley. Son at bedside
--- NOTE | 2022-04-22 14:35 | NUR ---
[facility] ACCEPTED THE PT, GOING TO RM 1236B. PT CAN BE TRANSFERRED AFTER 1600 TODAY. REPORT, TO B GIVEN TEL NO [phone] EXT [id number] BLS AMBULANCE TRANSPORT BY [facility] WILL BE AT 1830. SPOKE TO ADRIAN.
--- NOTE | 2022-04-22 16:00 | NUR ---
Notes- Family at bedside. Pain is control. Denies any shortness of breath. On room air, O2 sat is 94%
--- NOTE | 2022-04-22 17:00 | NUR ---
report given to brando mac [facility].
[2022-04-22] MEDS: cefTRIAXone 1 GM in D5W 50 ML IV SCH (17:32)
--- NOTE | 2022-04-22 18:29 | NUR ---
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
--- NOTE | 2022-04-22 19:36 | NUR ---
Called [facility], dispatcher Reji said the crew will be here in 10 minutes.
--- NOTE | 2022-04-22 19:51 | NUR ---
D/C Patient [facility] transport here. Patient given medication reconciliation form and D/C instructions. Exit Care provided. Daughter at bedside. Patient verbalized understanding. MD discussed with patient the results and treatment provided. Ambulatory with FWW, steady gait for transfer to [facility]. Patient in stable condition, ID band removed. IV catheter Rt. FA, intact and patent. Paperwork given to transport. Patient educated on pain management. All belongings sent with patient.
[2022-04-22] MEDS ORDERED: SIMVASTATIN 40 MG TABLET PO SCH (21:00)
== END 2022-04-22 19:51 | DRG 552 ==
LOC: SED 15:07 → SMU 20:22
PROVIDERS: ADMIT Family Medicine; ATTEND Family Medicine
DX: M48.062 Spinal stenosis, lumbar region with neurogenic claudication (principal); N39.0 Urinary tract infection, site not specified; M54.16 Radiculopathy, lumbar region; M17.0 Bilateral primary osteoarthritis of knee; M51.36 Other intervertebral disc degeneration, lumbar region; Z20.822 Contact with and (suspected) exposure to COVID-19; G62.9 Polyneuropathy, unspecified; I10 Essential (primary) hypertension; E78.5 Hyperlipidemia, unspecified; E03.9 Hypothyroidism, unspecified; Z88.0 Allergy status to penicillin; Z86.73 Personal history of transient ischemic attack (TIA), and cerebral infarction without residual deficits
CPT/HCPCS: 36415; 71045; 72131; 76376; 80053; 81000; 83605; 85025; 87040; 87081; 87086; 94640; 94760; 96365; 96367; 96372; 96375; 97110-GP; 97116-GP; 97530-GP; 99285; J0696; J1170; J1650; J1940; J2001; J2270; J7060; J7614

== ENCOUNTER 2023-12-11 12:38 | Inpatient (IN) | payer OTHER, MEDICAID ==
[~2023-12-11] VITALS: Ht 149.9 cm; Wt 60.8 kg
[2023-12-11] VITALS (7 sets, daily range): BP systolic 82–113; PULSE 85–98; RESP 18–24; TEMP 96.1–98.1; O2SAT 92–100
[~2023-12-11 12:38] MED LIST changes: +SIMV-345 PO; -SIMV40TA2 PO
[2023-12-11] MEDS: NACL 0.9% 1,000 ML IV ONE ×3 (14:04→18:04)
[2023-12-11 14:05] LABS: BASOPHILS % (AUTO) 0.6 % (0.0-2.0); EOSINOPHILS # (AUTO) 0.1 K/uL (0.0-0.4); HEMATOCRIT 41.9 % (36-48); HEMOGLOBIN 13.7 g/dL (12.0-16.0); LYMPHOCYTES # (AUTO) 2.2 K/uL (1.0-5.5); LYMPHOCYTES % (AUTO) 32.5 % (20.5-51.5); MEAN CORPUSCULAR HEMOGLOBIN 33 pg (27-31); MEAN CORPUSCULAR HGB CONC 33 % (32-36); MEAN CORPUSCULAR VOLUME 102 fL (79.0-98.0); MONOCYTES # (AUTO) 0.7 K/uL (0.0-1.0); MONOCYTES % (AUTO) 10.4 % (1.7-9.3); NEUTROPHILS # (AUTO) 3.8 K/uL (1.8-7.7); NEUTROPHILS % (AUTO) 54.5 % (40.0-70.0); PLATELET COUNT (AUTO) 292 K/uL (130-430); RED BLOOD CELL COUNT(AUTO) 4.12 MIL/uL (4.2-6.2); RED CELL DISTRIBUTION WIDTH 14.6 % (9.0-15.0); WHITE BLOOD COUNT (AUTO) 6.9 K/uL (4.8-10.8)
[2023-12-11 14:30] LABS: ANION GAP 6 (5-15); CALCIUM 8.7 mg/dL (8.4-11.0); CARBON DIOXIDE 30 mmol/L (23-29); CHLORIDE 104 mmol/L (98-107); CREATININE 2.14 mg/dL (0.55-1.30); GLUCOSE 111 mg/dL (74-106); POTASSIUM 4.2 mmol/L (3.5-5.1); SODIUM SERUM 140 mmol/L (136-145); UREA NITROGEN, BLOOD 34 mg/dL (8-21)
[2023-12-11] MEDS ORDERED: AMIO100T4 PO ×2 (14:37→15:06)
[2023-12-11] MEDS ORDERED: NINT150C PO ×2 (14:37→15:06)
[2023-12-11] MEDS ORDERED: BANOPHEN (14:37)
[2023-12-11] MEDS ORDERED: MOM PO (15:06)
[2023-12-11] MEDS ORDERED: SER25 PO (15:06)
[2023-12-11] MEDS ORDERED: ALBU0.63 INH (15:06)
[2023-12-11] MEDS ORDERED: PRO40 PO (15:06)
[2023-12-11] MEDS ORDERED: IPRA0.2S6 INH (15:06)
[2023-12-11] MEDS ORDERED: ALEN70TA27 PO (15:06)
[2023-12-11] MEDS ORDERED: LORA0.5T PO (15:06)
[2023-12-11] MEDS ORDERED: LEVO5TAB2 PO (15:06)
[2023-12-11] MEDS ORDERED: NITR0.4T47 SL (15:06)
[2023-12-11] MEDS ORDERED: TIZA-185 PO (15:06)
[2023-12-11] MEDS ORDERED: MELA5TAB50 PO (15:06)
[2023-12-11] MEDS ORDERED: DIPH50CA38 PO (15:06)
[2023-12-11] MEDS ORDERED: APIX2.5T PO (15:06)
[2023-12-11] MEDS ORDERED: LYR50 PO (15:06)
[2023-12-11] MEDS ORDERED: ROPI1TAB46 PO (15:06)
[2023-12-11] MEDS ORDERED: LOPE2TAB25 PO (15:06)
[2023-12-11 16:15] LABS: BILIRUBIN,URINE NEGATIVE (NEGATIVE); BLOOD, URINE 3+ (NEGATIVE); CLARITY/URINE CLOUDY (CLEAR); COLOR,URINE YELLOW (YELLOW); GLUCOSE,URINE NEGATIVE (NEGATIVE); KETONES,URINE NEGATIVE (NEGATIVE); LEUKOCYTE ESTERASE ,URINE 3+ (NEGATIVE); NITRITE, URINE NEGATIVE (NEGATIVE); PROTEIN URINE 2+ (NEGATIVE); UROBILINOGEN,URINE 0.2 (0.2-1.0)
[2023-12-11 17:06] LABS: BACTERIA,URINE MANY /HPF (None Seen); RBC,URINE 20-50 /HPF (0-3); WBC,URINE >100 /HPF (0-3)
[2023-12-11 17:07] LABS: MUCUS,URINE None Seen /LPF (None Seen); URINE AMORPHOUS PHOSPHATES 2+ /HPF (None Seen)
[2023-12-11] MEDS ORDERED: LevALBUTEROL HCL 1.25 MG/0.5 ML *CONC.* VIAL.NEB (XOPENEX CONC.) INH PRN (18:15)
[2023-12-11] MEDS: D5/0.45 NS 1,000 ML IV SCH (21:15)
[2023-12-11] MEDS: NACL 0.9% 500 ML IV ONE (23:00)
[2023-12-11] MEDS: tiZANidine HCL 4 MG TABLET PO SCH (23:03)
[2023-12-11] MEDS: AMIODARONE HCL 200 MG TABLET PO SCH (23:04)
[2023-12-11] MEDS: APIXABAN 2.5 MG TABLET PO SCH (23:05)
[2023-12-11] MEDS: LevALBUTEROL HCL 1.25 MG/0.5 ML *CONC.* VIAL.NEB (XOPENEX CONC.) INH SCH (23:39)
[2023-12-12] VITALS (7 sets, daily range): BP systolic 106–128; PULSE 80–96; RESP 17–20; TEMP 96.2–98.1; O2SAT 94–98
[2023-12-12 06:24] LABS: BASOPHILS % (AUTO) 0.4 % (0.0-2.0); EOSINOPHILS # (AUTO) 0.1 K/uL (0.0-0.4); HEMATOCRIT 34.1 % (36-48); LYMPHOCYTES # (AUTO) 2.5 K/uL (1.0-5.5); MEAN CORPUSCULAR HEMOGLOBIN 33 pg (27-31); MEAN CORPUSCULAR HGB CONC 32 % (32-36); MEAN CORPUSCULAR VOLUME 103 fL (79.0-98.0); MONOCYTES # (AUTO) 1.2 K/uL (0.0-1.0); MONOCYTES % (AUTO) 15.4 % (1.7-9.3); NEUTROPHILS # (AUTO) 3.7 K/uL (1.8-7.7); NEUTROPHILS % (AUTO) 50.2 % (40.0-70.0); PLATELET COUNT (AUTO) 197 K/uL (130-430); RED BLOOD CELL COUNT(AUTO) 3.33 MIL/uL (4.2-6.2); RED CELL DISTRIBUTION WIDTH 14.8 % (9.0-15.0); WHITE BLOOD COUNT (AUTO) 7.5 K/uL (4.8-10.8)
[2023-12-12 07:16] LABS: ALANINE AMINOTRANSFERASE 22 U/L (12-78); ALBUMIN 1.2 g/dL (3.4-4.8); ANION GAP 10 (5-15); ASPARTATE AMINOTRANSFERASE 44 U/L (10-37); CALCIUM 7.2 mg/dL (8.4-11.0); CARBON DIOXIDE 24 mmol/L (23-29); CHLORIDE 108 mmol/L (98-107); CREATININE 1.45 mg/dL (0.55-1.30); FREE T4 (FREE THYROXINE) 0.3 ng/dL (0.6-1.6); GLUCOSE 98 mg/dL (74-106); POTASSIUM 3.7 mmol/L (3.5-5.1); SODIUM SERUM 142 mmol/L (136-145); TOTAL BILIRUBIN 0.3 mg/dL (0.0-1.0); TOTAL PROTEIN, SERUM 5.6 g/dL (6.4-8.3); UREA NITROGEN, BLOOD 29 mg/dL (8-21)
[2023-12-12 08:09] LABS: THYROID STIMULATING HORMONE 29.69 uIu/mL (0.34-4.82)
[2023-12-12] MEDS: MILK OF MAGNESIA 30 ML UDC PO SCH (09:31)
[2023-12-12] MEDS: PANTOPRAZOLE SODIUM 40 MG TAB PO SCH (09:31)
[2023-12-12] MEDS: CEFEPIME 0.5 GM in D5W 50 ML IV SCH (15:41)
[2023-12-12] MEDS: MELATONIN 5 MG TABLET PO SCH (21:04)
[2023-12-12] MEDS: LORATADINE 10 MG TABLET PO SCH (21:04)
[2023-12-13] VITALS (8 sets, daily range): BP systolic 94–118; PULSE 62–75; RESP 16–18; TEMP 96–97.3; O2SAT 94–100
[2023-12-13] MEDS: CEFEPIME 1 GM/VIAL (MAXIPIME) ONE (01:10)
[2023-12-13] MEDS: LEVOTHYROXINE SODIUM 0.1 MG TABLET PO SCH (06:19)
[2023-12-13 07:08] LABS: BASOPHILS % (AUTO) 0.7 % (0.0-2.0); EOSINOPHILS # (AUTO) 0.1 K/uL (0.0-0.4); EOSINOPHILS % (AUTO) 1.4 % (0.0-4.0); HEMATOCRIT 33.1 % (36-48); HEMOGLOBIN 10.1 g/dL (12.0-16.0); LYMPHOCYTES # (AUTO) 2.8 K/uL (1.0-5.5); MEAN CORPUSCULAR HEMOGLOBIN 33 pg (27-31); MEAN CORPUSCULAR HGB CONC 31 % (32-36); MEAN CORPUSCULAR VOLUME 108 fL (79.0-98.0); MONOCYTES # (AUTO) 0.8 K/uL (0.0-1.0); MONOCYTES % (AUTO) 11.7 % (1.7-9.3); NEUTROPHILS # (AUTO) 2.8 K/uL (1.8-7.7); NEUTROPHILS % (AUTO) 43.2 % (40.0-70.0); PLATELET COUNT (AUTO) 191 K/uL (130-430); RED BLOOD CELL COUNT(AUTO) 3.06 MIL/uL (4.2-6.2); RED CELL DISTRIBUTION WIDTH 15.5 % (9.0-15.0); WHITE BLOOD COUNT (AUTO) 6.4 K/uL (4.8-10.8)
[2023-12-13 07:39] LABS: ALANINE AMINOTRANSFERASE 19 U/L (12-78); ALBUMIN 1.2 g/dL (3.4-4.8); ANION GAP 9 (5-15); ASPARTATE AMINOTRANSFERASE 39 U/L (10-37); CALCIUM 7.4 mg/dL (8.4-11.0); CARBON DIOXIDE 24 mmol/L (23-29); CHLORIDE 106 mmol/L (98-107); CREATININE 1.46 mg/dL (0.55-1.30); GLUCOSE 116 mg/dL (74-106); POTASSIUM 4.5 mmol/L (3.5-5.1); SODIUM SERUM 139 mmol/L (136-145); TOTAL BILIRUBIN 0.7 mg/dL (0.0-1.0); TOTAL PROTEIN, SERUM 5.4 g/dL (6.4-8.3); UREA NITROGEN, BLOOD 30 mg/dL (8-21)
[2023-12-13] MEDS ORDERED: VANCOMYCIN HCL 1 GM/NS PREMIX 250 ML IV ONE (16:00)
[2023-12-13] MEDS: VANCOMYCIN HCL 750 MG in NS 250 ML IV ONE (18:39)
[2023-12-14] VITALS (10 sets, daily range): BP systolic 105–131; PULSE 62–80; RESP 16–18; TEMP 96.6–98.4; O2SAT 92–100
[2023-12-14] MEDS: ALENDRONATE SODIUM 35 MG TABLET PO SCH (06:57)
[2023-12-15] VITALS (10 sets, daily range): BP systolic 86–123; PULSE 55–84; RESP 15–16; TEMP 97.1–97.9; O2SAT 93–98
[2023-12-15 07:47] LABS: BASOPHILS % (AUTO) 0.7 % (0.0-2.0); EOSINOPHILS # (AUTO) 0.3 K/uL (0.0-0.4); EOSINOPHILS % (AUTO) 4.7 % (0.0-4.0); HEMATOCRIT 30.8 % (36-48); HEMOGLOBIN 10.1 g/dL (12.0-16.0); LYMPHOCYTES # (AUTO) 3.2 K/uL (1.0-5.5); LYMPHOCYTES % (AUTO) 47.5 % (20.5-51.5); MEAN CORPUSCULAR HEMOGLOBIN 33 pg (27-31); MEAN CORPUSCULAR HGB CONC 33 % (32-36); MEAN CORPUSCULAR VOLUME 102 fL (79.0-98.0); MONOCYTES # (AUTO) 0.6 K/uL (0.0-1.0); MONOCYTES % (AUTO) 9.6 % (1.7-9.3); NEUTROPHILS # (AUTO) 2.5 K/uL (1.8-7.7); NEUTROPHILS % (AUTO) 37.5 % (40.0-70.0); PLATELET COUNT (AUTO) 176 K/uL (130-430); RED BLOOD CELL COUNT(AUTO) 3.01 MIL/uL (4.2-6.2); RED CELL DISTRIBUTION WIDTH 14.4 % (9.0-15.0); WHITE BLOOD COUNT (AUTO) 6.7 K/uL (4.8-10.8)
[2023-12-15 08:13] LABS: ALANINE AMINOTRANSFERASE 21 U/L (12-78); ALBUMIN 1.1 g/dL (3.4-4.8); ANION GAP 4 (5-15); ASPARTATE AMINOTRANSFERASE 40 U/L (10-37); CARBON DIOXIDE 27 mmol/L (23-29); CHLORIDE 109 mmol/L (98-107); CREATININE 1.28 mg/dL (0.55-1.30); GLUCOSE 78 mg/dL (74-106); POTASSIUM 3.1 mmol/L (3.5-5.1); SODIUM SERUM 140 mmol/L (136-145); TOTAL BILIRUBIN 0.6 mg/dL (0.0-1.0); TOTAL PROTEIN, SERUM 5.5 g/dL (6.4-8.3); UREA NITROGEN, BLOOD 19 mg/dL (8-21)
[2023-12-15] MEDS: POTASSIUM CHLORIDE 20 MEQ TABLET.ER PO ONE (11:30)
[2023-12-15] MEDS: LORazepam 2 MG/ML VIAL IM ONE (16:28)
[2023-12-15] MEDS: VANCOMYCIN HCL 750 MG in NS 250 ML IV SCH (17:16)
[2023-12-16] VITALS (8 sets, daily range): BP systolic 105–135; PULSE 77–87; RESP 15–16; TEMP 96.1–98.8; O2SAT 90–96
[2023-12-16 07:52] LABS: ANION GAP 7 (5-15); CALCIUM 7.5 mg/dL (8.4-11.0); CARBON DIOXIDE 26 mmol/L (23-29); CHLORIDE 107 mmol/L (98-107); CREATININE 1.19 mg/dL (0.55-1.30); GLUCOSE 105 mg/dL (74-106); SODIUM SERUM 140 mmol/L (136-145); UREA NITROGEN, BLOOD 17 mg/dL (8-21)
[2023-12-16 07:55] LABS: BASOPHILS # (AUTO) 0.1 K/uL (0.0-0.2); BASOPHILS % (AUTO) 0.8 % (0.0-2.0); EOSINOPHILS # (AUTO) 0.3 K/uL (0.0-0.4); EOSINOPHILS % (AUTO) 4.1 % (0.0-4.0); HEMATOCRIT 28.5 % (36-48); HEMOGLOBIN 9.4 g/dL (12.0-16.0); LYMPHOCYTES # (AUTO) 2.4 K/uL (1.0-5.5); MEAN CORPUSCULAR HEMOGLOBIN 33 pg (27-31); MEAN CORPUSCULAR HGB CONC 33 % (32-36); MEAN CORPUSCULAR VOLUME 100 fL (79.0-98.0); MONOCYTES # (AUTO) 0.7 K/uL (0.0-1.0); MONOCYTES % (AUTO) 11.9 % (1.7-9.3); NEUTROPHILS # (AUTO) 2.8 K/uL (1.8-7.7); NEUTROPHILS % (AUTO) 44.2 % (40.0-70.0); PLATELET COUNT (AUTO) 155 K/uL (130-430); RED BLOOD CELL COUNT(AUTO) 2.84 MIL/uL (4.2-6.2); RED CELL DISTRIBUTION WIDTH 14.8 % (9.0-15.0); WHITE BLOOD COUNT (AUTO) 6.2 K/uL (4.8-10.8)
[2023-12-16 08:03] LABS: POTASSIUM 2.5 mmol/L (3.5-5.1)
[2023-12-16] MEDS ORDERED: PHYTONADIONE Non-Formulary 5 MG TABLET PO ONE (08:45)
[2023-12-16] MEDS: POTASSIUM CHLORIDE 20 MEQ TABLET.ER PO ONE (10:13)
[2023-12-16] MEDS: POTASSIUM CHLORIDE 40 MEQ in NS 250 ML IV ONE (10:14)
[2023-12-16] MEDS: ACETAMINOPHEN 650 MG SUPP.RECT RC PRN (12:46)
[2023-12-16] MEDS: CIPROFLOXACIN HCL 0.3% EYE DRP 2.5 ML DROPS OP SCH (22:25)
[2023-12-17] VITALS (9 sets, daily range): BP systolic 109–147; PULSE 72–88; RESP 16–22; TEMP 97–98.4; O2SAT 95–96
[2023-12-17 07:29] LABS: BASOPHILS # (AUTO) 0.1 K/uL (0.0-0.2); BASOPHILS % (AUTO) 0.7 % (0.0-2.0); EOSINOPHILS # (AUTO) 0.3 K/uL (0.0-0.4); EOSINOPHILS % (AUTO) 4.7 % (0.0-4.0); HEMOGLOBIN 10.8 g/dL (12.0-16.0); MEAN CORPUSCULAR HEMOGLOBIN 33 pg (27-31); MEAN CORPUSCULAR HGB CONC 34 % (32-36); MEAN CORPUSCULAR VOLUME 99 fL (79.0-98.0); MONOCYTES # (AUTO) 0.8 K/uL (0.0-1.0); MONOCYTES % (AUTO) 10.6 % (1.7-9.3); PLATELET COUNT (AUTO) 159 K/uL (130-430); RED BLOOD CELL COUNT(AUTO) 3.23 MIL/uL (4.2-6.2); RED CELL DISTRIBUTION WIDTH 14.4 % (9.0-15.0); WHITE BLOOD COUNT (AUTO) 7.2 K/uL (4.8-10.8)
[2023-12-17 07:53] LABS: ALANINE AMINOTRANSFERASE 26 U/L (12-78); ALBUMIN 1.4 g/dL (3.4-4.8); ANION GAP 9 (5-15); ASPARTATE AMINOTRANSFERASE 48 U/L (10-37); CALCIUM 7.9 mg/dL (8.4-11.0); CARBON DIOXIDE 26 mmol/L (23-29); CHLORIDE 105 mmol/L (98-107); CREATININE 1.05 mg/dL (0.55-1.30); GLUCOSE 92 mg/dL (74-106); SODIUM SERUM 140 mmol/L (136-145); TOTAL BILIRUBIN 0.6 mg/dL (0.0-1.0); TOTAL PROTEIN, SERUM 6.2 g/dL (6.4-8.3); UREA NITROGEN, BLOOD 12 mg/dL (8-21)
[2023-12-17 08:00] LABS: POTASSIUM 2.4 mmol/L (3.5-5.1)
[2023-12-17] MEDS ORDERED: KCL 40 mEq in 100 mL (PREMIX) 100 ML IV ONE (08:45)
[2023-12-17] MEDS: POTASSIUM CHLORIDE 20 MEQ/PKT PACKET PO ONE (08:45)
[2023-12-17] MEDS: POTASSIUM CHLORIDE 40 MEQ in NS 250 ML IV ONE (09:41)
[2023-12-17] MEDS: KCL 20 mEq in D5/0.45NS 1000mL 1,000 ML IV ONE (13:49)
[2023-12-18] VITALS (10 sets, daily range): BP systolic 126–142; PULSE 78–86; RESP 16–20; TEMP 97–98.2; O2SAT 94–97
[2023-12-18] MEDS: MEPERIDINE 100 MG INJ. 100 MG/ML VIAL ONE (07:18)
[2023-12-18] MEDS: MIDAZOLAM HCL 5 MG/5 ML VIAL ONE (07:18)
[2023-12-18] MEDS: SIMETHICONE 40 MG/0.6 ML ML ONE (07:18)
[2023-12-18 07:31] LABS: BASOPHILS # (AUTO) 0.1 K/uL (0.0-0.2); BASOPHILS % (AUTO) 0.8 % (0.0-2.0); EOSINOPHILS # (AUTO) 0.3 K/uL (0.0-0.4); EOSINOPHILS % (AUTO) 4.2 % (0.0-4.0); HEMATOCRIT 33.2 % (36-48); HEMOGLOBIN 11.2 g/dL (12.0-16.0); LYMPHOCYTES # (AUTO) 3.4 K/uL (1.0-5.5); LYMPHOCYTES % (AUTO) 42.6 % (20.5-51.5); MEAN CORPUSCULAR HEMOGLOBIN 34 pg (27-31); MEAN CORPUSCULAR HGB CONC 34 % (32-36); MEAN CORPUSCULAR VOLUME 99 fL (79.0-98.0); MONOCYTES # (AUTO) 0.9 K/uL (0.0-1.0); MONOCYTES % (AUTO) 11.1 % (1.7-9.3); NEUTROPHILS # (AUTO) 3.3 K/uL (1.8-7.7); NEUTROPHILS % (AUTO) 41.3 % (40.0-70.0); PLATELET COUNT (AUTO) 161 K/uL (130-430); RED BLOOD CELL COUNT(AUTO) 3.36 MIL/uL (4.2-6.2); RED CELL DISTRIBUTION WIDTH 14.6 % (9.0-15.0); WHITE BLOOD COUNT (AUTO) 8.1 K/uL (4.8-10.8)
[2023-12-18 07:45] LABS: INR 1.2 (0.8-1.2)
[2023-12-18 07:47] LABS: ANION GAP 7 (5-15); CALCIUM 7.5 mg/dL (8.4-11.0); CARBON DIOXIDE 28 mmol/L (23-29); CHLORIDE 104 mmol/L (98-107); GLUCOSE 73 mg/dL (74-106); SODIUM SERUM 139 mmol/L (136-145); UREA NITROGEN, BLOOD 7 mg/dL (8-21)
[2023-12-18 07:50] LABS: POTASSIUM 2.4 mmol/L (3.5-5.1)
[2023-12-18] MEDS: KCL 40 mEq in 100 mL (PREMIX) 100 ML IV ONE ×2 (10:21→18:50)
[2023-12-18] MEDS: KCL 20 mEq in D5/0.45NS 1000mL 1,000 ML IV SCH (16:45)
[2023-12-18 17:16] LABS: ANION GAP 6 (5-15); CALCIUM 7.6 mg/dL (8.4-11.0); CARBON DIOXIDE 29 mmol/L (23-29); CHLORIDE 105 mmol/L (98-107); CREATININE 0.91 mg/dL (0.55-1.30); GLUCOSE 114 mg/dL (74-106); SODIUM SERUM 140 mmol/L (136-145); UREA NITROGEN, BLOOD 6 mg/dL (8-21)
[2023-12-19] VITALS (9 sets, daily range): BP systolic 102–133; PULSE 66–88; RESP 16–20; TEMP 97–98.1; O2SAT 92–97
[2023-12-19 07:12] LABS: BASOPHILS # (AUTO) 0.1 K/uL (0.0-0.2); BASOPHILS % (AUTO) 0.6 % (0.0-2.0); EOSINOPHILS # (AUTO) 0.3 K/uL (0.0-0.4); EOSINOPHILS % (AUTO) 2.7 % (0.0-4.0); HEMATOCRIT 31.6 % (36-48); HEMOGLOBIN 10.4 g/dL (12.0-16.0); LYMPHOCYTES # (AUTO) 3.4 K/uL (1.0-5.5); LYMPHOCYTES % (AUTO) 36.3 % (20.5-51.5); MEAN CORPUSCULAR HEMOGLOBIN 33 pg (27-31); MEAN CORPUSCULAR HGB CONC 33 % (32-36); MEAN CORPUSCULAR VOLUME 99 fL (79.0-98.0); MONOCYTES # (AUTO) 0.9 K/uL (0.0-1.0); MONOCYTES % (AUTO) 9.4 % (1.7-9.3); NEUTROPHILS # (AUTO) 4.8 K/uL (1.8-7.7); PLATELET COUNT (AUTO) 185 K/uL (130-430); RED BLOOD CELL COUNT(AUTO) 3.17 MIL/uL (4.2-6.2); RED CELL DISTRIBUTION WIDTH 14.5 % (9.0-15.0); WHITE BLOOD COUNT (AUTO) 9.3 K/uL (4.8-10.8)
[2023-12-19 07:46] LABS: ALANINE AMINOTRANSFERASE 24 U/L (12-78); ALBUMIN 1.5 g/dL (3.4-4.8); ANION GAP 5 (5-15); ASPARTATE AMINOTRANSFERASE 46 U/L (10-37); CALCIUM 7.4 mg/dL (8.4-11.0); CARBON DIOXIDE 29 mmol/L (23-29); CHLORIDE 107 mmol/L (98-107); CREATININE 0.82 mg/dL (0.55-1.30); GLUCOSE 84 mg/dL (74-106); POTASSIUM 3.5 mmol/L (3.5-5.1); SODIUM SERUM 141 mmol/L (136-145); TOTAL BILIRUBIN 0.8 mg/dL (0.0-1.0); TOTAL PROTEIN, SERUM 6.1 g/dL (6.4-8.3); UREA NITROGEN, BLOOD 5 mg/dL (8-21)
[2023-12-19] MEDS: fentaNYL CITRATE/PF 100 MCG/2 ML AMP ONE (09:51)
[2023-12-19] MEDS: MIDAZOLAM HCL 5 MG/5 ML VIAL ONE (09:51)
[2023-12-19] MEDS: cefTRIAXone 1 GM in D5W 50 ML IV SCH (11:00)
[2023-12-19] MEDS: KETOROLAC TROMETHAMINE 15 MG VIAL IVP PRN (17:50)
[2023-12-20] VITALS (9 sets, daily range): BP systolic 106–148; PULSE 82–101; RESP 16–19; TEMP 96.8–98.9; O2SAT 93–99
[2023-12-20 07:18] LABS: ANION GAP 7 (5-15); CALCIUM 7.3 mg/dL (8.4-11.0); CARBON DIOXIDE 28 mmol/L (23-29); CHLORIDE 106 mmol/L (98-107); CREATININE 0.73 mg/dL (0.55-1.30); GLUCOSE 85 mg/dL (74-106); SODIUM SERUM 141 mmol/L (136-145); UREA NITROGEN, BLOOD 4 mg/dL (8-21)
[2023-12-20 07:25] LABS: POTASSIUM 2.7 mmol/L (3.5-5.1)
[2023-12-20 07:35] LABS: BASOPHILS # (AUTO) 0.1 K/uL (0.0-0.2); BASOPHILS % (AUTO) 0.8 % (0.0-2.0); EOSINOPHILS # (AUTO) 0.4 K/uL (0.0-0.4); EOSINOPHILS % (AUTO) 4.6 % (0.0-4.0); HEMATOCRIT 33.7 % (36-48); HEMOGLOBIN 11.1 g/dL (12.0-16.0); LYMPHOCYTES % (AUTO) 33.5 % (20.5-51.5); MEAN CORPUSCULAR HEMOGLOBIN 33 pg (27-31); MEAN CORPUSCULAR HGB CONC 33 % (32-36); MEAN CORPUSCULAR VOLUME 100 fL (79.0-98.0); MONOCYTES # (AUTO) 0.7 K/uL (0.0-1.0); MONOCYTES % (AUTO) 8.2 % (1.7-9.3); NEUTROPHILS # (AUTO) 4.8 K/uL (1.8-7.7); NEUTROPHILS % (AUTO) 52.9 % (40.0-70.0); PLATELET COUNT (AUTO) 172 K/uL (130-430); RED BLOOD CELL COUNT(AUTO) 3.36 MIL/uL (4.2-6.2); RED CELL DISTRIBUTION WIDTH 15.1 % (9.0-15.0)
[2023-12-20] MEDS: POTASSIUM CHLORIDE 40 MEQ in NS 250 ML IV ONE (15:00)
[2023-12-20] MEDS: MIRTAZAPINE 15 MG TABLET GT SCH (21:44)
[2023-12-20 22:10] LABS: ANION GAP 5 (5-15); CARBON DIOXIDE 26 mmol/L (23-29); CHLORIDE 109 mmol/L (98-107); CREATININE 0.85 mg/dL (0.55-1.30); GLUCOSE 137 mg/dL (74-106); POTASSIUM 3.6 mmol/L (3.5-5.1); SODIUM SERUM 140 mmol/L (136-145); UREA NITROGEN, BLOOD 5 mg/dL (8-21)
[2023-12-20 22:39] LABS: CALCIUM 6.9 mg/dL (8.4-11.0)
[2023-12-21] VITALS (19 sets, daily range): BP systolic 59–111; PULSE 50–69; RESP 16–18; TEMP 96.6–98.6; O2SAT 93–100
[2023-12-21] MEDS: NACL 0.9% 1,000 ML IV ONE (00:28)
[2023-12-21 10:14] LABS: BASOPHILS # (AUTO) 0.1 K/uL (0.0-0.2); BASOPHILS % (AUTO) 0.8 % (0.0-2.0); EOSINOPHILS # (AUTO) 0.4 K/uL (0.0-0.4); EOSINOPHILS % (AUTO) 5.7 % (0.0-4.0); HEMATOCRIT 27.9 % (36-48); HEMOGLOBIN 8.9 g/dL (12.0-16.0); LYMPHOCYTES # (AUTO) 2.6 K/uL (1.0-5.5); MEAN CORPUSCULAR HEMOGLOBIN 33 pg (27-31); MEAN CORPUSCULAR HGB CONC 32 % (32-36); MEAN CORPUSCULAR VOLUME 105 fL (79.0-98.0); MONOCYTES # (AUTO) 0.5 K/uL (0.0-1.0); MONOCYTES % (AUTO) 6.9 % (1.7-9.3); NEUTROPHILS # (AUTO) 4.1 K/uL (1.8-7.7); NEUTROPHILS % (AUTO) 52.6 % (40.0-70.0); PLATELET COUNT (AUTO) 134 K/uL (130-430); RED BLOOD CELL COUNT(AUTO) 2.66 MIL/uL (4.2-6.2); RED CELL DISTRIBUTION WIDTH 15.7 % (9.0-15.0); WHITE BLOOD COUNT (AUTO) 7.8 K/uL (4.8-10.8)
[2023-12-21 10:35] LABS: ALANINE AMINOTRANSFERASE 19 U/L (12-78); ALBUMIN 1.2 g/dL (3.4-4.8); ANION GAP 7 (5-15); ASPARTATE AMINOTRANSFERASE 39 U/L (10-37); CARBON DIOXIDE 25 mmol/L (23-29); CHLORIDE 110 mmol/L (98-107); CREATININE 0.88 mg/dL (0.55-1.30); GLUCOSE 134 mg/dL (74-106); POTASSIUM 3.5 mmol/L (3.5-5.1); SODIUM SERUM 142 mmol/L (136-145); TOTAL BILIRUBIN 0.4 mg/dL (0.0-1.0); TOTAL PROTEIN, SERUM 5.2 g/dL (6.4-8.3); UREA NITROGEN, BLOOD 6 mg/dL (8-21)
[2023-12-21 10:46] LABS: CALCIUM 6.4 mg/dL (8.4-11.0)
[2023-12-21] MEDS: VANCOMYCIN HCL 500 MG/VIAL IV ONE (18:41)
[2023-12-22] VITALS (10 sets, daily range): BP systolic 109–145; PULSE 64–85; RESP 15–20; TEMP 96.7–97.9; O2SAT 94–100
[2023-12-22 08:50] LABS: BASOPHILS # (AUTO) 0.1 K/uL (0.0-0.2); BASOPHILS % (AUTO) 0.9 % (0.0-2.0); EOSINOPHILS # (AUTO) 0.7 K/uL (0.0-0.4); EOSINOPHILS % (AUTO) 5.8 % (0.0-4.0); HEMATOCRIT 34.4 % (36-48); HEMOGLOBIN 11.1 g/dL (12.0-16.0); LYMPHOCYTES # (AUTO) 3.3 K/uL (1.0-5.5); LYMPHOCYTES % (AUTO) 27.7 % (20.5-51.5); MEAN CORPUSCULAR HEMOGLOBIN 33 pg (27-31); MEAN CORPUSCULAR HGB CONC 32 % (32-36); MEAN CORPUSCULAR VOLUME 101 fL (79.0-98.0); MONOCYTES # (AUTO) 0.7 K/uL (0.0-1.0); MONOCYTES % (AUTO) 6.2 % (1.7-9.3); NEUTROPHILS % (AUTO) 59.4 % (40.0-70.0); PLATELET COUNT (AUTO) 172 K/uL (130-430); RED CELL DISTRIBUTION WIDTH 15.4 % (9.0-15.0); WHITE BLOOD COUNT (AUTO) 11.7 K/uL (4.8-10.8)
[2023-12-22 09:12] LABS: ANION GAP 6 (5-15); CALCIUM 7.1 mg/dL (8.4-11.0); CARBON DIOXIDE 26 mmol/L (23-29); CHLORIDE 109 mmol/L (98-107); CREATININE 0.76 mg/dL (0.55-1.30); GLUCOSE 96 mg/dL (74-106); POTASSIUM 4.2 mmol/L (3.5-5.1); SODIUM SERUM 141 mmol/L (136-145); UREA NITROGEN, BLOOD 6 mg/dL (8-21)
[2023-12-22] MEDS: FLUCONAZOLE 200 mg/ NS 100 ML IV ONE (12:11)
[2023-12-23 01:31] VITALS: BP_SYST 165; PULSE 89; RESP 17; TEMP 97.4; O2SAT 100
[2023-12-23 07:25] VITALS: PULSE 75; O2SAT 97
[2023-12-23 08:00] VITALS: O2SAT 100
[2023-12-23 11:19] VITALS: BP_SYST 128; PULSE 78; RESP 16; TEMP 97.5; O2SAT 93
[2023-12-23 11:54] LABS: ANION GAP 3 (5-15); CALCIUM 7.1 mg/dL (8.4-11.0); CARBON DIOXIDE 25 mmol/L (23-29); CHLORIDE 104 mmol/L (98-107); CREATININE 0.73 mg/dL (0.55-1.30); GLUCOSE 182 mg/dL (74-106); POTASSIUM 5.2 mmol/L (3.5-5.1); SODIUM SERUM 132 mmol/L (136-145); UREA NITROGEN, BLOOD 6 mg/dL (8-21)
[2023-12-23 14:07] LABS: BASOPHILS # (AUTO) 0.1 K/uL (0.0-0.2); BASOPHILS % (AUTO) 0.6 % (0.0-2.0); EOSINOPHILS # (AUTO) 0.3 K/uL (0.0-0.4); EOSINOPHILS % (AUTO) 2.7 % (0.0-4.0); HEMATOCRIT 29.1 % (36-48); HEMOGLOBIN 9.4 g/dL (12.0-16.0); LYMPHOCYTES # (AUTO) 1.8 K/uL (1.0-5.5); MEAN CORPUSCULAR HEMOGLOBIN 33 pg (27-31); MEAN CORPUSCULAR HGB CONC 33 % (32-36); MEAN CORPUSCULAR VOLUME 101 fL (79.0-98.0); MONOCYTES # (AUTO) 0.8 K/uL (0.0-1.0); MONOCYTES % (AUTO) 7.3 % (1.7-9.3); NEUTROPHILS # (AUTO) 8.2 K/uL (1.8-7.7); NEUTROPHILS % (AUTO) 73.4 % (40.0-70.0); RED BLOOD CELL COUNT(AUTO) 2.87 MIL/uL (4.2-6.2); RED CELL DISTRIBUTION WIDTH 15.3 % (9.0-15.0); WHITE BLOOD COUNT (AUTO) 11.2 K/uL (4.8-10.8)
[2023-12-23 14:23] LABS: PLATELET COUNT (AUTO) 133 K/uL (130-430)
[2023-12-23 15:03] VITALS: BP_SYST 113; PULSE 78; RESP 16; TEMP 97.8; O2SAT 100
[2023-12-23 15:20] VITALS: O2SAT 94
[2024-01-06] MEDS ORDERED: LORA10TA7 PO (02:24)
[2024-01-06] MEDS ORDERED: ZAN4 PO (02:24)
[2024-01-06] MEDS ORDERED: MELA5TAB12 PO (02:24)
[2024-01-06] MEDS ORDERED: NINT150C PO (02:24)
[2024-01-06] MEDS ORDERED: LEVO100T PO (02:24)
[2024-01-07] MEDS ORDERED: TIZA-185 PO (09:01)
== END 2023-12-23 17:40 | DRG 871 ==
LOC: SED 12:38 → STU 16:45 → SMU 12-15 18:53
PROVIDERS: ADMIT Family Medicine; ATTEND Family Medicine
PROC: 0DH68UZ Insertion of Feeding Device into Stomach, Via Natural or Artificial Opening Endoscopic (ICD-10-PCS; principal; 2023-12-19 11:00)
DX: A41.9 Sepsis, unspecified organism (principal); G93.41 Metabolic encephalopathy; J18.9 Pneumonia, unspecified organism; N17.9 Acute kidney failure, unspecified; N39.0 Urinary tract infection, site not specified; I48.20 Chronic atrial fibrillation, unspecified; E86.0 Dehydration; E78.5 Hyperlipidemia, unspecified; F03.90 Unspecified dementia, unspecified severity, without behavioral disturbance, psychotic disturbance, mood disturbance, and anxiety; E03.9 Hypothyroidism, unspecified; E87.6 Hypokalemia; J84.10 Pulmonary fibrosis, unspecified; R13.10 Dysphagia, unspecified; Z66 Do not resuscitate; I10 Essential (primary) hypertension; Z88.0 Allergy status to penicillin; Z79.01 Long term (current) use of anticoagulants; Z86.73 Personal history of transient ischemic attack (TIA), and cerebral infarction without residual deficits; Z79.899 Other long term (current) drug therapy; Z88.8 Allergy status to other drugs, medicaments and biological substances; B95.2 Enterococcus as the cause of diseases classified elsewhere
CPT/HCPCS: 36415; 43246; 70450-TC; 71045; 80048; 80053; 80202; 81000; 81001; 81015; 83605; 83735; 83880; 84439; 84443; 84484; 85025; 85610; 85651; 85730; 87040; 87086; 87186; 87230; 92610-GN; 93005; 94070; 94640; 94760; 99285; G0378; J0692; J0696; J1450; J1885; J1956; J2060; J2175; J2250; J3010; J3370; J3480; J7030; J7050; J7060; J7612